=== PATIENT | female | born 1965 | race Caucasian/White ===

== ENCOUNTER 2018-11-25 13:42 | Emergency (ER) | payer OTHER | END 2018-11-25 14:35 | disposition home or self-care (01) | LOC: ERS 13:42 | DX: M25.512 Pain in left shoulder (principal); M54.9 Dorsalgia, unspecified; F41.9 Anxiety disorder, unspecified; Z79.899 Other long term (current) drug therapy; V89.2XXA Person injured in unspecified motor-vehicle accident, traffic, initial encounter | CPT/HCPCS: 99283 ==